=== PATIENT | male | born 2000 | race Caucasian/White ===

== ENCOUNTER 2023-10-11 07:48 | Emergency (ER) | payer OTHER ==
[~2023-10-11] VITALS: Ht 175.3 cm; Wt 81.7 kg
== END 2023-10-11 08:22 | disposition home or self-care (01) ==
LOC: ER 07:48
DX: S51.811D Laceration without foreign body of right forearm, subsequent encounter (principal); W19.XXXD Unspecified fall, subsequent encounter
CPT/HCPCS: 99281